=== PATIENT | female | born 1940 | race African-American/Black ===

== ENCOUNTER 2017-11-28 18:44 | Inpatient (IN) | payer OTHER ==
[~2017-11-28] VITALS: Ht 157.5 cm; Wt 62.1 kg
[~2017-11-28 18:44] MED LIST: ALL300T PO; ATE50T PO; ATOR40TA52 PO; CARV3.1240 PO; ENAL20TA70 PO; LEVE100012 PO; TAMO20TA9 PO
[2017-11-28 19:46] LABS: Basophils # (auto) 0 uL; Basophils % (auto) 0.7 % (0.0-2.0); Eosinophils # (auto) 0.1 uL; Hematocrit 38.8 % (36.0-46.0); Hemoglobin 12.9 g/dL (12.2-16.2); Lymphocytes # (auto) 2.3 uL; Lymphocytes % (auto) 34.5 % (10.0-50.0); Mean Corpuscular Hemoglobin 28.9 pg (28.0-32.0); Mean Corpuscular Hgb Conc. 33.2 g/dL (32.0-36.0); Mean Corpuscular Volume 87.2 fL (80.0-100.0); Monocytes # (auto) 0.6 uL; Monocytes % (auto) 8.7 % (0.0-12.0); Neutrophils # (auto) 3.7 uL; Neutrophils % (auto) 55.1 % (37.0-80.0); Platelet Count (auto) 223 10^3/uL (140-450); Red Blood Cells 4.45 10^6/uL (4.0-5.20); White Blood Cell 6.8 10^3/uL (4.4-10.8)
[2017-11-28 20:11] LABS: Albumin 3.1 g/dL (3.4-5.0); Calcium 8.3 mg/dL (8.5-10.1); Potassium 3.4 mmol/L (3.5-5.1)
[2017-11-28 20:13] LABS: BUN/Creatinine Ratio 13.8
[2017-11-28 20:19] LABS: Bilirubin, Total 0.5 mg/dL (0.2-1.0); Total Protein 6.5 g/dL (6.4-8.2)
[2017-11-28 21:20] LABS: INR 1.06 (0.9-1.15); Partial Thromboplastin Time 24.9 sec (23.78-33.04); Prothrombin Time 11.3 sec (9.27-12.13)
[2017-11-28] MEDS ORDERED: MORPHINE SULFATE 4 MG/ML SYR/VIAL IV ONE (22:15)
[2017-11-28] MEDS ORDERED: metroNIDAZOLE 500MG/100ML 100 ML IV ONE (22:15)
[2017-11-28] MEDS ORDERED: ONDANSETRON HCL 4 MG/2 ML VIAL IV ONE (22:15)
[2017-11-28] MEDS ORDERED: LEVOFLOXACIN 500MG 100 ML IV ONE (22:15)
[2017-11-29] MEDS ORDERED: ONDANSETRON HCL 4 MG/2 ML VIAL IV PRN (05:00)
[2017-11-29] MEDS ORDERED: LACTULOSE 20Gm/30ML SOLN PO PRN (05:30)
[2017-11-29] MEDS ORDERED: POTASSIUM CHL 20 Meq TABLET PO ONE (06:00)
[2017-11-29] MEDS ORDERED: SODIUM CHLORIDE 0.9% 1,000 ML IV ONE (06:00)
[2017-11-29] MEDS ORDERED: LACTULOSE 20Gm/30ML SOLN PO ONE (06:00)
[2017-11-29 07:40] LABS: Basophils # (auto) 0 uL; Basophils % (auto) 0.5 % (0.0-2.0); Eosinophils # (auto) 0 uL; Hematocrit 36.7 % (36.0-46.0); Hemoglobin 12.2 g/dL (12.2-16.2); Lymphocytes % (auto) 10.1 % (10.0-50.0); Mean Corpuscular Hemoglobin 28.8 pg (28.0-32.0); Mean Corpuscular Hgb Conc. 33.2 g/dL (32.0-36.0); Mean Corpuscular Volume 86.7 fL (80.0-100.0); Monocytes # (auto) 0.6 uL; Monocytes % (auto) 6.3 % (0.0-12.0); Neutrophils # (auto) 8.1 uL; Neutrophils % (auto) 83.1 % (37.0-80.0); Platelet Count (auto) 182 10^3/uL (140-450); Red Blood Cells 4.23 10^6/uL (4.0-5.20); Red Cell Distribution Width 12.7 % (11.8-14.3); White Blood Cell 9.7 10^3/uL (4.4-10.8)
[2017-11-29 08:00] LABS: BUN/Creatinine Ratio 20.1; Calcium 8.5 mg/dL (8.5-10.1); Potassium 4.4 mmol/L (3.5-5.1)
[2017-11-29 09:00] VITALS: BP 119/91
[2017-11-29 09:53] VITALS: BP 119/91
[2017-11-29] MEDS: amLODIPine BESYLATE 5 MG TAB PO SCH (10:33)
[2017-11-29] MEDS: CARVEDILOL 3.125 MG TAB PO SCH ×2 (10:34→21:53)
[2017-11-29] MEDS ORDERED: FERR-20 PO (11:21)
[2017-11-29 13:00] VITALS: BP 117/75
[2017-11-29] MEDS ORDERED: GOLYTELY 4L KIT PO ONE (14:00)
[2017-11-29 17:00] VITALS: BP 111/67
[2017-11-29 21:28] VITALS: BP 106/61
[2017-11-29] MEDS: ATORVASTATIN 20 MG TAB PO SCH (21:53)
[2017-11-30 05:26] VITALS: BP 119/71
[2017-11-30] MEDS ORDERED: GOLYTELY 4L KIT PO ONE (06:00)
[2017-11-30 09:31] VITALS: BP 135/75
[2017-11-30] MEDS: TAMOXIFEN CITR 10 MG TAB PO SCH (10:00)
[2017-11-30] MEDS: FUROSEMIDE 20 MG TAB PO SCH (10:00)
[2017-11-30] MEDS: ALLOPURINOL 100 MG TAB PO SCH (10:00)
[2017-11-30] MEDS: amLODIPine BESYLATE 5 MG TAB PO SCH (10:37)
[2017-11-30] MEDS: CARVEDILOL 3.125 MG TAB PO SCH ×2 (10:38→21:46)
[2017-11-30] MEDS ORDERED: SODIUM CHLORIDE LOCK 10 ML ONE (10:54)
[2017-11-30 13:21] VITALS: BP 125/68
[2017-11-30] MEDS: MIDAZOLAM HCL 5 MG/ML-1ML VIAL ONE ×2 (14:47→14:50)
[2017-11-30] MEDS: fentaNYL CITRATE 100 MCG/2 ML VL ONE ×3 (14:47→15:18)
[2017-11-30] MEDS: LEVOFLOXACIN 250MG 50 ML IV SCH (16:51)
[2017-11-30] MEDS ORDERED: metroNIDAZOLE 500MG/100ML 100 ML IV ONE ×2 (17:00→20:00)
[2017-11-30 17:02] VITALS: BP 103/49
[2017-11-30 18:00] VITALS: BP 129/57
[2017-11-30 21:15] VITALS: BP 107/67
[2017-11-30] MEDS: ATORVASTATIN 20 MG TAB PO SCH (21:46)
[2017-12-01] MEDS: ACETAMINOPHEN 500 MG TAB PO PRN ×4 (00:55→21:54)
[2017-12-01 05:15] VITALS: BP 95/56
[2017-12-01] MEDS ORDERED: metroNIDAZOLE 500MG/100ML 100 ML IV SCH (06:00)
[2017-12-01] MEDS: metroNIDAZOLE 500MG/100ML 100 ML IV SCH ×3 (06:10→21:50)
[2017-12-01 06:36] LABS: Basophils # (auto) 0 uL; Basophils % (auto) 0.4 % (0.0-2.0); Eosinophils # (auto) 0 uL; Hematocrit 27.2 % (36.0-46.0); Hemoglobin 9.3 g/dL (12.2-16.2); Lymphocytes # (auto) 1.2 uL; Lymphocytes % (auto) 14.6 % (10.0-50.0); Mean Corpuscular Hemoglobin 29.8 pg (28.0-32.0); Mean Corpuscular Hgb Conc. 34.2 g/dL (32.0-36.0); Mean Corpuscular Volume 87.3 fL (80.0-100.0); Monocytes # (auto) 0.8 uL; Monocytes % (auto) 9.4 % (0.0-12.0); Neutrophils # (auto) 6.1 uL; Neutrophils % (auto) 75.6 % (37.0-80.0); Nucleated Red Blood Cells % 0.1 %; Platelet Count (auto) 136 10^3/uL (140-450); Red Blood Cells 3.12 10^6/uL (4.0-5.20); Red Cell Distribution Width 12.8 % (11.8-14.3)
[2017-12-01 06:54] LABS: BUN/Creatinine Ratio 11.2; Calcium 7.6 mg/dL (8.5-10.1); Uric Acid 4.7 mg/dL (2.6-6.0)
[2017-12-01 07:09] LABS: Potassium 2.8 mmol/L (3.5-5.1)
[2017-12-01] MEDS ORDERED: POTASSIUM CHL 20 Meq TABLET PO ONE (08:00)
[2017-12-01] MEDS: POTASSIUM CHL 20MEQ/100ML 100 ML IV SCH ×2 (08:07→09:30)
[2017-12-01 09:00] VITALS: BP 147/70
[2017-12-01] MEDS: TAMOXIFEN CITR 10 MG TAB PO SCH (09:30)
[2017-12-01] MEDS: LEVOFLOXACIN 250MG 50 ML IV SCH (09:30)
[2017-12-01] MEDS: FUROSEMIDE 20 MG TAB PO SCH (09:30)
[2017-12-01] MEDS: amLODIPine BESYLATE 5 MG TAB PO SCH (09:31)
[2017-12-01] MEDS: ALLOPURINOL 100 MG TAB PO SCH (09:31)
[2017-12-01] MEDS: CARVEDILOL 3.125 MG TAB PO SCH ×2 (09:31→21:50)
[2017-12-01 13:00] VITALS: BP 126/68
[2017-12-01 16:10] LABS: Albumin 2.5 g/dL (3.4-5.0); Calcium 7.7 mg/dL (8.5-10.1); Potassium 3.6 mmol/L (3.5-5.1)
[2017-12-01 16:14] LABS: Bilirubin, Total 0.4 mg/dL (0.2-1.0); Total Protein 5.1 g/dL (6.4-8.2)
[2017-12-01 17:00] VITALS: BP 117/67
[2017-12-01 19:31] LABS: Urine Bacteria FEW /hpf (None Seen); Urine Blood Negative /uL (Negative); Urine Mucus FEW (None Seen); Urine Specific Gravity 1.012 (1.001-1.035); Urine WBC 3 /hpf (0 - 5)
[2017-12-01] MEDS: ATORVASTATIN 20 MG TAB PO SCH (21:49)
[2017-12-01 22:14] VITALS: BP 119/62
[2017-12-02] MEDS: ACETAMINOPHEN 500 MG TAB PO PRN ×2 (03:48→17:41)
[2017-12-02] MEDS: metroNIDAZOLE 500MG/100ML 100 ML IV SCH ×3 (06:12→23:01)
[2017-12-02 09:00] VITALS: BP 137/68
[2017-12-02] MEDS: TAMOXIFEN CITR 10 MG TAB PO SCH (09:19)
[2017-12-02] MEDS: LEVOFLOXACIN 250MG 50 ML IV SCH (09:20)
[2017-12-02] MEDS: FUROSEMIDE 20 MG TAB PO SCH (09:20)
[2017-12-02] MEDS: ALLOPURINOL 100 MG TAB PO SCH (09:20)
[2017-12-02] MEDS: amLODIPine BESYLATE 5 MG TAB PO SCH (09:21)
[2017-12-02] MEDS: CARVEDILOL 3.125 MG TAB PO SCH ×2 (09:22→23:01)
[2017-12-02 13:00] VITALS: BP 126/64
[2017-12-02 15:32] LABS: Hematocrit 28.3 % (36.0-46.0); Hemoglobin 9.5 g/dL (12.2-16.2)
[2017-12-02 17:00] VITALS: BP 129/68
[2017-12-02] MEDS: ATORVASTATIN 20 MG TAB PO SCH (23:00)
[2017-12-03] MEDS: ACETAMINOPHEN 500 MG TAB PO PRN (02:31)
[2017-12-03 05:37] VITALS: BP 139/76
[2017-12-03 06:07] LABS: Basophils # (auto) 0 uL; Basophils % (auto) 0.6 % (0.0-2.0); Eosinophils # (auto) 0 uL; Eosinophils % (auto) 0.6 % (0.0-7.0); Hematocrit 27.9 % (36.0-46.0); Hemoglobin 9.6 g/dL (12.2-16.2); Lymphocytes # (auto) 1.5 uL; Lymphocytes % (auto) 21.6 % (10.0-50.0); Mean Corpuscular Hemoglobin 30.1 pg (28.0-32.0); Mean Corpuscular Hgb Conc. 34.5 g/dL (32.0-36.0); Mean Corpuscular Volume 87.5 fL (80.0-100.0); Monocytes # (auto) 0.7 uL; Monocytes % (auto) 10.6 % (0.0-12.0); Neutrophils # (auto) 4.7 uL; Neutrophils % (auto) 66.6 % (37.0-80.0); Platelet Count (auto) 151 10^3/uL (140-450); Red Blood Cells 3.19 10^6/uL (4.0-5.20); Red Cell Distribution Width 12.8 % (11.8-14.3)
[2017-12-03] MEDS: metroNIDAZOLE 500MG/100ML 100 ML IV SCH ×2 (06:09→14:18)
[2017-12-03 06:16] LABS: Albumin 2.5 g/dL (3.4-5.0); Calcium 7.9 mg/dL (8.5-10.1); Potassium 3.5 mmol/L (3.5-5.1)
[2017-12-03 06:20] LABS: BUN/Creatinine Ratio 7.7; Bilirubin, Total 0.3 mg/dL (0.2-1.0); Total Protein 5.2 g/dL (6.4-8.2)
[2017-12-03 09:00] VITALS: BP 119/68
[2017-12-03] MEDS: LEVOFLOXACIN 250MG 50 ML IV SCH (09:36)
[2017-12-03] MEDS: ALLOPURINOL 100 MG TAB PO SCH (09:36)
[2017-12-03] MEDS: FUROSEMIDE 20 MG TAB PO SCH (09:37)
[2017-12-03] MEDS: TAMOXIFEN CITR 10 MG TAB PO SCH (09:37)
[2017-12-03] MEDS: amLODIPine BESYLATE 5 MG TAB PO SCH (09:37)
[2017-12-03] MEDS: CARVEDILOL 3.125 MG TAB PO SCH (09:38)
[2017-12-03 13:00] VITALS: BP 120/66
[2017-12-03 16:45] VITALS: BP 122/64
[2017-12-03 16:59] VITALS: BP 143/80
== END 2017-12-03 17:30 | disposition home or self-care (01) | DRG 377 ==
LOC: ER 18:44 → OVERFLOW 18:45 → WEST WING 11-29 08:25
PROVIDERS: ADMIT Nurse Practitioner Family; ATTEND Internal Medicine
PROC: 0DJD8ZZ Inspection of Lower Intestinal Tract, Via Natural or Artificial Opening Endoscopic (ICD-10-PCS; principal; 2017-11-30 14:45)
DX: K57.31 Diverticulosis of large intestine without perforation or abscess with bleeding (principal); E43 Unspecified severe protein-calorie malnutrition; K55.9 Vascular disorder of intestine, unspecified; K63.3 Ulcer of intestine; I25.10 Atherosclerotic heart disease of native coronary artery without angina pectoris; I50.9 Heart failure, unspecified; K59.00 Constipation, unspecified; E86.0 Dehydration; R55 Syncope and collapse; E87.6 Hypokalemia; R73.9 Hyperglycemia, unspecified; I11.0 Hypertensive heart disease with heart failure; D64.9 Anemia, unspecified; Z88.0 Allergy status to penicillin; Z82.49 Family history of ischemic heart disease and other diseases of the circulatory system; Z86.73 Personal history of transient ischemic attack (TIA), and cerebral infarction without residual deficits; Z90.710 Acquired absence of both cervix and uterus; Z90.49 Acquired absence of other specified parts of digestive tract; Z98.51 Tubal ligation status; Z68.25 Body mass index [BMI] 25.0-25.9, adult
CPT/HCPCS: 36415; 70450; 71045; 74176; 80048; 80053; 81001; 82270; 82550; 83036; 83735; 83880; 84484; 84550; 85014; 85018; 85025; 85379; 85610; 85730; 93005; 96365; 96367; 96375; A6257; J1956; J2250; J2405; J3480; J3490

== ENCOUNTER 2020-10-07 15:19 | Observation (INO) | payer OTHER ==
[~2020-10-07] VITALS: Ht 165.1 cm; Wt 24.7 kg
[~2020-10-07 15:19] MED LIST changes: -ENAL20TA70 PO; +ENAL20TA8 PO; +FERR-20 PO
[2020-10-07 16:08] LABS: Basophils # (auto) 0 10 ^3/uL (0-0.2); Basophils % (auto) 0.9 % (0.0-2.0); Eosinophils # (auto) 0 10 ^3/uL (0-0.8); Eosinophils % (auto) 0.4 % (0.0-7.0); Hematocrit 33.1 % (36.0-46.0); Hemoglobin 10.7 g/dL (12.2-16.2); Lymphocytes # (auto) 1.2 10 ^3/uL (0.4-5.4); Lymphocytes % (auto) 22.8 % (10.0-50.0); Mean Corpuscular Hemoglobin 26.5 pg (28.0-32.0); Mean Corpuscular Hgb Conc. 32.4 g/dL (32.0-36.0); Mean Corpuscular Volume 81.9 fL (80.0-100.0); Monocytes # (auto) 0.7 10 ^3/uL (0-1.3); Monocytes % (auto) 12.2 % (0.0-12.0); Neutrophils # (auto) 3.4 10 ^3/uL (1.6-8.6); Neutrophils % (auto) 63.7 % (37.0-80.0); Nucleated Red Blood Cells % 0.1 %; Red Blood Cells 4.04 10^6/uL (4.0-5.20); Red Cell Distribution Width 16.1 % (11.8-14.3); White Blood Cell 5.3 10^3/uL (4.4-10.8)
[2020-10-07 16:32] LABS: INR 1.17 (0.9-1.15); Partial Thromboplastin Time 26.4 sec (23.6-33.0)
[2020-10-07 16:34] LABS: Albumin 1.9 g/dL (3.4-5.0); Calcium 9.1 mg/dL (8.5-10.1); Potassium 3.3 mmol/L (3.5-5.1)
[2020-10-07 16:42] LABS: BUN/Creatinine Ratio 17.2; Bilirubin, Total 0.5 mg/dL (0.2-1.0); Magnesium 2.2 mg/dL (1.6-2.6); Total Protein 6.7 g/dL (6.4-8.2)
[2020-10-07] MEDS ORDERED: NITROGLYCERIN 0.4 MG SL TAB SL PRN (18:30)
[2020-10-07] MEDS ORDERED: MORPHINE SULFATE INJECTION 2 MG/ML SYRG IV PRN (18:30)
[2020-10-07] MEDS: AZITHROMYCIN 250 MG TAB PO SCH (18:53)
[2020-10-08] MEDS ORDERED: POTASSIUM CHL 20MEQ/100ML 100 ML IV SCH (01:15)
[2020-10-08] MEDS ORDERED: POTASSIUM EFFERVESENT TAB 25 MEQ PO ONE (01:30)
[2020-10-08 04:03] LABS: Basophils # (auto) 0 10 ^3/uL (0-0.2); Basophils % (auto) 0.6 % (0.0-2.0); Eosinophils # (auto) 0 10 ^3/uL (0-0.8); Eosinophils % (auto) 0.2 % (0.0-7.0); Hematocrit 32.2 % (36.0-46.0); Hemoglobin 10.6 g/dL (12.2-16.2); Lymphocytes # (auto) 1.4 10 ^3/uL (0.4-5.4); Lymphocytes % (auto) 27.1 % (10.0-50.0); Mean Corpuscular Volume 81.8 fL (80.0-100.0); Monocytes # (auto) 0.5 10 ^3/uL (0-1.3); Monocytes % (auto) 10.5 % (0.0-12.0); Neutrophils # (auto) 3.1 10 ^3/uL (1.6-8.6); Neutrophils % (auto) 61.6 % (37.0-80.0); Nucleated Red Blood Cells % 0.1 %; Red Blood Cells 3.94 10^6/uL (4.0-5.20); Red Cell Distribution Width 15.8 % (11.8-14.3); White Blood Cell 5.1 10^3/uL (4.4-10.8)
[2020-10-08 04:36] LABS: BUN/Creatinine Ratio 17.4; Calcium 9.2 mg/dL (8.5-10.1); Potassium 3.9 mmol/L (3.5-5.1)
[2020-10-08] MEDS: AZITHROMYCIN 250 MG TAB PO SCH (10:00)
[2020-10-08] MEDS ORDERED: ASPirin 81 mg TAB PO SCH (13:45)
[2020-10-08 14:47] LABS: Basophils # (auto) 0 10 ^3/uL (0-0.2); Eosinophils # (auto) 0 10 ^3/uL (0-0.8); Eosinophils % (auto) 0.2 % (0.0-7.0); Hemoglobin 10.6 g/dL (12.2-16.2); Lymphocytes # (auto) 1.3 10 ^3/uL (0.4-5.4); Monocytes # (auto) 0.6 10 ^3/uL (0-1.3); Neutrophils # (auto) 3.3 10 ^3/uL (1.6-8.6); White Blood Cell 5.2 10^3/uL (4.4-10.8)
[2020-10-08 14:48] LABS: Basophils % (auto) 0.7 % (0.0-2.0); Hematocrit 32.6 % (36.0-46.0); Lymphocytes % (auto) 24.8 % (10.0-50.0); Mean Corpuscular Hemoglobin 26.6 pg (28.0-32.0); Mean Corpuscular Hgb Conc. 32.5 g/dL (32.0-36.0); Mean Corpuscular Volume 81.7 fL (80.0-100.0); Monocytes % (auto) 11.9 % (0.0-12.0); Neutrophils % (auto) 62.4 % (37.0-80.0); Nucleated Red Blood Cells % 0.1 %; Red Blood Cells 3.99 10^6/uL (4.0-5.20); Red Cell Distribution Width 15.8 % (11.8-14.3)
[2020-10-08 18:14] VITALS: BP 112/66
== END 2020-10-08 19:40 | disposition home or self-care (01) ==
LOC: ER 15:19 → OVERFLOW 18:28
PROVIDERS: ADMIT Internal Medicine; ATTEND Internal Medicine
DX: R53.1 Weakness (principal); Z20.822 Contact with and (suspected) exposure to COVID-19; I11.0 Hypertensive heart disease with heart failure; I50.22 Chronic systolic (congestive) heart failure; E78.5 Hyperlipidemia, unspecified; R77.8 Other specified abnormalities of plasma proteins; D64.9 Anemia, unspecified; I44.7 Left bundle-branch block, unspecified; I63.9 Cerebral infarction, unspecified; E87.6 Hypokalemia; I67.2 Cerebral atherosclerosis; D84.9 Immunodeficiency, unspecified; R29.700 NIHSS score 0; J98.11 Atelectasis; Z86.73 Personal history of transient ischemic attack (TIA), and cerebral infarction without residual deficits; Z85.9 Personal history of malignant neoplasm, unspecified; Z90.710 Acquired absence of both cervix and uterus; Z90.49 Acquired absence of other specified parts of digestive tract; Z98.51 Tubal ligation status
CPT/HCPCS: 36415; 70450; 70551; 71045; 71250; 76604; 76942; 80048; 80053; 83735; 83986; 84484; 85025; 85610; 85730; 87205; 87426; 89051; 93005; G0378

== ENCOUNTER 2022-04-30 12:48 | Emergency (ER) | payer OTHER | END 2022-04-30 12:50 | disposition left against medical advice (07) | LOC: ER 12:48 | DX: M54.9 Dorsalgia, unspecified (principal); Z53.21 Procedure and treatment not carried out due to patient leaving prior to being seen by health care provider ==